=== PATIENT | male | born 1990 | race Caucasian/White ===

== ENCOUNTER 2023-11-15 13:44 | Emergency (ER) | payer OTHER ==
[~2023-11-15] VITALS: Ht 175.3 cm; Wt 75.3 kg
[2023-11-15] MEDS: IV NS 0.9% 1,000 ML BAG IV ONE (14:57)
[2023-11-15] MEDS ORDERED: IOHEXOL-300 100 ML VIAL IV ONE (15:24)
[2023-11-15] MEDS ORDERED: IV NS 0.9% 250 ML IV ONE (15:24)
[2023-11-15 15:26] LABS: BASOPHILS % (AUTO) 0.3 % (0.0-2.0); EOSINOPHILS % (AUTO) 0.8 % (0.0-6.0); HEMATOCRIT 44 % (39-51); HEMOGLOBIN 14.8 g/dL (13.5-17.5); LYMPHOCYTES # (AUTO) 1.2 K/uL (0.8-4.8); LYMPHOCYTES % (AUTO) 21.3 % (20.0-44.0); MEAN CORPUSCULAR HEMOGLOBIN 29 PG (26.0-33.0); MEAN CORPUSCULAR HGB CONC 33 g/dl (31.0-36.0); MEAN CORPUSCULAR VOLUME 87 fL (80-96); MONOCYTES # (AUTO) 0.5 K/uL (0.1-1.30); MONOCYTES % (AUTO) 8.6 % (2.0-12.0); PLATELET COUNT (AUTO) 196 K/uL (150-450); RED BLOOD CELL COUNT(AUTO) 5.08 MIL/uL (4.5-6.0); RED CELL DISTRIBUTION WIDTH 12.9 % (11.5-15.0); WHITE BLOOD COUNT (AUTO) 5.8 K/uL (4.3-11.0)
[2023-11-15 15:32] LABS: CALCIUM, SERUM 8.9 mg/dL (8.5-10.1); CREATININE 0.7 mg/dL (0.6-1.3); POTASSIUM 4.1 mmol/L (3.5-5.1)
[2023-11-15 15:37] LABS: INR 1.01 (0.91-1.10); PROTHROMBIN TIME 10.4 SECS (9.2-11.1)
[2023-11-15] MEDS ORDERED: IBUP-1953 PO (16:21)
[2023-11-15] MEDS ORDERED: VALA10002 PO (16:21)
[2023-11-15 16:54] VITALS: BP 121/59; TEMP 97.9; O2SAT 99
== END 2023-11-15 16:55 | disposition home or self-care (01) ==
LOC: ER 13:57
DX: K12.1 Other forms of stomatitis (principal); M54.2 Cervicalgia; Z60.2 Problems related to living alone
CPT/HCPCS: 99285; 96360; 70491; 85025; 80048; 36415; 85730; J7030; J7050; Q9967